=== PATIENT | female | born 1940 | race Caucasian/White ===

== ENCOUNTER 2017-07-23 21:48 | Inpatient (IN) | payer MEDICARE, MEDICAID ==
[~2017-07-23] VITALS: Ht 170.2 cm; Wt 84.6 kg
--- NOTE | 2017-07-23 21:58 | NUR ---
JEN MCKEON FROM [facility]; PER EMS, GENERALIZED WEAKNESS. PER EMS "FACILITY CALLED BECAUSE PT WAS UNABLE TO TRANFER TO W/C TO RESTROOM PT USUALLY WOULD. EVERYTHING ELSE IS PT BASELINE." PT AOX2 RR EVEN AND UNLABORED. NO SOB NOTED. NAD NOTED. NO NVD AT THIS TIME. PT GOWNED AND PLACED ON MONITOR WAITING FOR MD GASTELUM.
--- NOTE | 2017-07-23 22:12 | NUR ---
IV STARTED ON RIGHT AC 18G. GOOD BLOOD RETURN LABS DRAWN SENT TO LAB
[2017-07-23 22:24] LABS: BASOPHILS % (AUTO) 0.1 % (0.0-2.0); EOSINOPHILS # (AUTO) 0.2 /CMM (0.0-0.7); HEMATOCRIT 37 % (33-45); LYMPHOCYTES # (AUTO) 1.1 /CMM (0.8-4.8); LYMPHOCYTES % (AUTO) 11.7 % (20.0-44.0); MEAN CORPUSCULAR HEMOGLOBIN 27 PG (26.0-33.0); MEAN CORPUSCULAR HGB CONC 33 g/dl (31.0-36.0); MEAN CORPUSCULAR VOLUME 84 fL (82-100); MONOCYTES # (AUTO) 0.8 /CMM (0.1-1.30); MONOCYTES % (AUTO) 9.1 % (2.0-12.0); NEUTROPHILS % (AUTO) 77.1 % (43.0-81.0); PLATELET COUNT (AUTO) 331 /CMM (150-450); RDW COEFFICIENT OF VARIATION 16.6 (11.5-15.0); WHITE BLOOD COUNT (AUTO) 9.1 K/uL (4.3-11.0)
--- NOTE | 2017-07-23 22:27 | NUR ---
URINE COLLECTED. CALLED LAB FOR PANAMA HAT SMEARER
[2017-07-23 22:34] LABS: CALCIUM, SERUM 9.2 mg/dL (8.5-10.1); CARBON DIOXIDE 25 mmol/L (21-32); CHLORIDE 106 mmol/L (98-107); CREATININE 1.3 mg/dL (0.6-1.3); GLUCOSE 124 mg/dL (74-106); POTASSIUM 4.4 mmol/L (3.5-5.1); SODIUM SERUM 141 mmol/L (136-145); UREA NITROGEN, BLOOD 25 mg/dL (7-18)
[2017-07-23 22:39] LABS: ALANINE AMINOTRANSFERASE 29 U/L (12-78); ALBUMIN 3.5 g/dL (3.4-5.0); ALKALINE PHOSPHATASE 86 U/L (46-116); ASPARTATE AMINOTRANSFERASE 15 U/L (15-37); BILIRUBIN,TOTAL 0.2 mg/dL (0.2-1.0); TOTAL PROTEIN, SERUM 8.2 g/dL (6.4-8.2)
[2017-07-23 22:42] LABS: TROPONIN I < 0.017 ng/mL (0.00-0.056)
--- NOTE | 2017-07-23 22:50 | NUR ---
PT TO RADIOLOGY FOR CT HEAD
--- NOTE | 2017-07-23 23:00 | NUR ---
PT RETURNED FROM CT.
--- NOTE | 2017-07-23 23:32 | NUR ---
RECOLLECTED URINE. SENT TO LAB.
[2017-07-23 23:38] LABS: APPEARANCE,URINE SL CLOUDY (CLEAR); BILIRUBIN,URINE NEGATIVE (NEGATIVE); BLOOD, URINE 1+ Ery/uL (NEGATIVE); COLOR,URINE YELLOW (YELLOW); KETONES,URINE NEGATIVE (NEGATIVE); LEUKOCYTE ESTERASE ,URINE NEGATIVE (NEGATIVE); NITRITE, URINE NEGATIVE (NEGATIVE); PROTEIN,URINE NEGATIVE (NEGATIVE); UGLUCOSE NEGATIVE (NEGATIVE); UROBILINOGEN,URINE 0.2 EU/dL (0.2)
[2017-07-23 23:57] LABS: BACTERIA,URINE None seen /HPF (None Seen); SQUAMOUS EPITHELIAL CELL,UR Few /HPF (None Seen); WBC,URINE 0-2 /HPF (0-3)
--- NOTE | 2017-07-24 00:26 | NUR ---
PT ASSIGNED TO [facility] BED 321-1
--- NOTE | 2017-07-24 00:28 | NUR ---
PT ASSIGNED TO 309-1
--- NOTE | 2017-07-24 00:31 | NUR ---
REPORT GIVEN TO JASE LUCERO. FOR DIEGO FOR TELE BED 309-1
[2017-07-24] MEDS ORDERED: DIPH50CA4 PO (00:39)
[2017-07-24] MEDS ORDERED: SPIR50TA3 PO (00:39)
[2017-07-24] MEDS ORDERED: DIPH25CA83 PO (00:39)
[2017-07-24] MEDS ORDERED: LISI10TA5 PO (00:39)
[2017-07-24] MEDS ORDERED: WARF3TAB6 PO (00:39)
[2017-07-24] MEDS ORDERED: AMMO226L TP (00:39)
[2017-07-24] MEDS ORDERED: LEVO75TA7 PO (00:39)
[2017-07-24] MEDS ORDERED: DOCU250C75 PO (00:39)
[2017-07-24] MEDS ORDERED: ACET-868 PO (00:39)
[2017-07-24] MEDS ORDERED: [UNRECOGNIZED DRUG - CODE] SQ (00:39)
[2017-07-24] MEDS ORDERED: BUPR-51 PO (00:39)
--- NOTE | 2017-07-24 00:52 | NUR ---
PT TRANSFERRED PER ACLS PROTOCOL.
[2017-07-24 01:00] VITALS: BP 116/69
[2017-07-24] MEDS ORDERED: ACETAMINOPHEN 325 MG TABLET PO PRN (01:00)
[2017-07-24] MEDS ORDERED: MORPHINE SULFATE INJ 2 MG/ML DISP.SYRIN IV PRN (01:00)
[2017-07-24] MEDS ORDERED: ONDANSETRON HCL/PF 4 MG/2 ML VIAL IVP PRN (01:00)
--- NOTE | 2017-07-24 01:00 | NUR ---
TELE TELEVISION PARTS TESTER INITIAL NOTES ADMIT PT FROM ER VIA [facility] ACCOMPANIED BY ER NURSE AND TECH. DX OF GENERAL WEAKNESS. PT IS AWAKE AND ALERT , ORIENTED WHERE SHE AT AND HOW TO USED THE CALL LIGHT SYSTEM. SKIN ASSESSMENT DONE . DENIES ANY PAIN OR ANY DISCOMFORT. NOT IN ANY ACUTE DISTRESS NOTED. TELE SR PER MONITOR. KEPT HER WARM AND COMFORTABLE AT ALL TIMES. BED ALARM SET FOR SAFETY. PLACE CALL LIGHT AT REACH. CONTINUE MONITORING. BED ALARM SET FOR SAFETY. SNACKS ALSO SERVED. PER PT REQUESTED.
[2017-07-24 01:52] LABS: INR 1.86 (0.87-1.13); PROTHROMBIN TIME 20.7 SECS (9.5-12.7)
[2017-07-24 06:49] LABS: BASOPHILS % (AUTO) 0.5 % (0.0-2.0); EOSINOPHILS # (AUTO) 0.1 /CMM (0.0-0.7); EOSINOPHILS % (AUTO) 1.9 % (0.0-6.0); HEMATOCRIT 34 % (33-45); HEMOGLOBIN 11.1 g/dL (11.5-14.8); LYMPHOCYTES # (AUTO) 1.2 /CMM (0.8-4.8); LYMPHOCYTES % (AUTO) 15.8 % (20.0-44.0); MEAN CORPUSCULAR HEMOGLOBIN 27 PG (26.0-33.0); MEAN CORPUSCULAR HGB CONC 32 g/dl (31.0-36.0); MEAN CORPUSCULAR VOLUME 84 fL (82-100); MONOCYTES # (AUTO) 0.6 /CMM (0.1-1.30); MONOCYTES % (AUTO) 8.4 % (2.0-12.0); NEUTROPHILS # (AUTO) 5.3 /CMM (1.8-8.9); NEUTROPHILS % (AUTO) 73.4 % (43.0-81.0); PLATELET COUNT (AUTO) 319 /CMM (150-450); RDW COEFFICIENT OF VARIATION 15.7 (11.5-15.0); RED BLOOD CELL COUNT(AUTO) 4.12 MIL/uL (4.0-5.2); WHITE BLOOD COUNT (AUTO) 7.3 K/uL (4.3-11.0)
[2017-07-24 06:56] LABS: ALANINE AMINOTRANSFERASE 26 U/L (12-78); ALBUMIN 3.2 g/dL (3.4-5.0); ALKALINE PHOSPHATASE 80 U/L (46-116); ASPARTATE AMINOTRANSFERASE 13 U/L (15-37); BILIRUBIN,TOTAL 0.2 mg/dL (0.2-1.0); CALCIUM, SERUM 8.9 mg/dL (8.5-10.1); CARBON DIOXIDE 25 mmol/L (21-32); CHLORIDE 108 mmol/L (98-107); CREATININE 1.2 mg/dL (0.6-1.3); GLUCOSE 109 mg/dL (74-106); MAGNESIUM 1.7 mg/dL (1.8-2.4); PHOSPHORUS 2.9 mg/dL (2.5-4.9); POTASSIUM 3.8 mmol/L (3.5-5.1); SODIUM SERUM 142 mmol/L (136-145); TOTAL PROTEIN, SERUM 7.6 g/dL (6.4-8.2); UREA NITROGEN, BLOOD 22 mg/dL (7-18)
--- NOTE | 2017-07-24 07:01 | NUR ---
TELE SECTION HOUSEKEEPER CLOSING NOTES PT AWAKE AND SEEMS ANXIOUS, RE-ORIENTED WHERE SHE AT. ALSO EDUCATE PT REGARDING FALL PRECAUTION AND PT UNDERSTOOD WELL . SHE STATED THAT NEEDS TO CALL HER DAUGHTER TO LET HER KNOW THAT SHE'S HERE IN THE HOSPITAL. DENIES ANY PAIN OR ANY DISCOMFORT. NO SOB NOTED. ABLE TO GET UP BUT NEEDS ASSISTANCE FOR SAFETY. SLEPT ON AND OFF BUT STABLE SINCE ADMISSION. TELE SR PER MONITOR. MORNING CARE DONE WITH THE HELPED OF ARGELIA CHIANG. ALL DUE MEDS GIVEN AND ALL NEEDS MET . KEPT HER WARM AND COMFORTABLE AT ALL TIMES. WILL ENDORSE TO AM NURSE FOR CONTINUITY OF CARE.BED ALARM SET FOR SAFETY.
[2017-07-24 07:03] LABS: CHOLESTEROL 155 mg/dL (<200); HDL CHOLESTEROL 26 mg/dL (40-60); LDL 74 mg/dL (0-99); THYROID STIMULATING HORMONE 1.404 uIU/mL (0.358-3.74); TRIGLYCERIDES 410 mg/dL (30-150)
[2017-07-24 07:19] VITALS: BP 128/80
[2017-07-24 08:00] VITALS: BP 128/80
--- NOTE | 2017-07-24 08:00 | NUR ---
SPORTS MARKETING COORDINATOR NOTES PATIENT AWAKE IN BED,TALKATIVE. NO SOB, NO DISCOMFORT NOTED. PERIPHERAL IV ACCESS ON LFA INTACT PATENT. NO ANXIOUSNESS NOTED AT THIS TIME. BED IN LOW LOCKED POSITION. CALL LIGHT WITHIN REACH. MONITORING CLOSELY.
[2017-07-24 08:59] LABS: INR 1.94 (0.87-1.13); PROTHROMBIN TIME 21.7 SECS (9.5-12.7)
[2017-07-24] MEDS: LEVOTHYROXINE SODIUM 75 MCG TABLET PO SCH (11:02)
[2017-07-24] MEDS: BUPROPION XL 150 MG TAB.ER.24 PO SCH (11:02)
[2017-07-24] MEDS: PANTOPRAZOLE 40 MG TABLET.DR PO SCH (11:02)
[2017-07-24] MEDS: LISINOPRIL (10MG) 10 MG TABLET PO SCH (11:03)
[2017-07-24] MEDS: Magnesium 1GM/D5W 100ML PREMIX 100 ML IV SCH ×2 (11:28→12:38)
--- NOTE | 2017-07-24 11:58 | NUR ---
MS RN NOTES PATIENT SEEN BY MD WITH NEW ORDERS TO BE EVALUATED BY PT & REPLACE MAGNESIUM. ACKNOWLEDGED & CARRIED OUT. MONITORING CLOSELY.
[2017-07-24 16:00] VITALS: BP 113/67
[2017-07-24] MEDS: WARFARIN SODIUM 1 MG TABLET PO SCH (17:34)
--- NOTE | 2017-07-24 18:55 | NUR ---
MS RN NOTES PATIENT RESTING IN BED. NO DISTRESS. NO C/O PAIN NO SOB NOTED. PARTICIPATED WITH PT EVAL TOLERATED WELL. ON BED REST FOR SAFETY DUE TO WEAKNESS. HAS EPISODES OF CONFUSION ON & OFF. PERIPHERAL IV LINE ON LAC INTACT PATENT. BED IN LOW LOCKED POSITION. ALL NEEDS MET. WILL ENDORSE TO MOLD PRESS OPERATOR.
--- NOTE | 2017-07-24 19:53 | NUR ---
MS RN NOTE RECEIVED PATIENT FROM DAY SHIFT, PATIENT IS ALERT AND ORIENTEDX2, CONFUSED AT TIMES, NO S/S OF RESPIRATORY DISTRESS AND NO FACIAL GRIMACE PRESENT. IV ON LEFT FA IS PATENT AND INTACT, COVERED WITH SLEEVE. SRX2, BED IN LOW POSITION, CALL LIGHT WITHIN REACH, WILL CONTINUE TO MONITOR.
[2017-07-24 19:59] VITALS: BP 129/66
[2017-07-25 06:47] LABS: CALCIUM, SERUM 8.8 mg/dL (8.5-10.1); CARBON DIOXIDE 27 mmol/L (21-32); CHLORIDE 105 mmol/L (98-107); CREATININE 1.1 mg/dL (0.6-1.3); GLUCOSE 97 mg/dL (74-106); SODIUM SERUM 139 mmol/L (136-145); UREA NITROGEN, BLOOD 18 mg/dL (7-18)
--- NOTE | 2017-07-25 06:54 | NUR ---
MS RN NOTE PATIENT IS RESTING IN BED, NO S/S OF RESPIRATORY DISTRESS OR PAIN AT THIS TIME. IV ON LEFT LEFT FA IS PATENT AND INTACT, SL ONLY. WILL ENDORSE TO DAY SHIFT NURSE FOR DIEGO.
--- NOTE | 2017-07-25 07:30 | NUR ---
RN OPEN NOTES RECEIVED REPORT FROM CLOTH REELER NURSE. PATIENT IS IN BED WITH HER EYES CLOSED. EASILY AROUSED TO LIGHT TOUCH. BED IN LOW POSITION, LOCKED AND TWO SIDE RAILS ARE UP. WILL CONTINUE TO ASSESS AND MONITOR PATIENT.
--- NOTE | 2017-07-25 07:35 | NUR ---
RN OPEN NOTES RECEIVED REPORT FROM SUPERVISOR COMMISSARY PRODUCTION NURSE. PATIENT IS IN BED WITH HER EYES CLOSED. EASILY AROUSED TO LIGHT TOUCH. BED IN LOW POSITION, LOCKED AND TWO SIDE RAILS ARE UP. WILL CONTINUE TO ASSESS AND MONITOR PATIENT.
[2017-07-25 08:00] VITALS: BP 116/61
[2017-07-25] MEDS: PANTOPRAZOLE 40 MG TABLET.DR PO SCH (08:30)
[2017-07-25] MEDS: LEVOTHYROXINE SODIUM 75 MCG TABLET PO SCH (08:30)
[2017-07-25] MEDS: BUPROPION XL 150 MG TAB.ER.24 PO SCH (08:30)
[2017-07-25] MEDS: LISINOPRIL (10MG) 10 MG TABLET PO SCH (08:30)
--- NOTE | 2017-07-25 08:50 | NUR ---
DR WALLACE AT BEDSIDE
[2017-07-25] MEDS: methylPREDNISolone SOD SUCC 125 MG/2ML VIAL IV SCH ×3 (11:12→16:28)
--- NOTE | 2017-07-25 13:45 | NUR ---
BUSTER DAUGHTER WOULD LIKE [facility] TO HAVE A COPY OF THE PATIENT PREVIOUS MRI RESULT. THE DAUGHTER REQUESTED THE MRI TO BE FAXED TO [facility]
--- NOTE | 2017-07-25 14:18 | NUR ---
SPOKE WITH BUSTER VUONG. PATIENT HAS ADVANCE DIRECTIVE FOR DNR/DNI AND SHE WILL PROVIDE A COPY VALDEZ FROM THE FACILITY. BUSTER RICARDO NUMBER IS [phone]
[2017-07-25 15:14] LABS: INR 1.57 (0.87-1.13); PROTHROMBIN TIME 17.3 SECS (9.5-12.7)
[2017-07-25 16:00] VITALS: BP 144/90
[2017-07-25] MEDS: WARFARIN SODIUM 1 MG TABLET PO SCH (16:31)
--- NOTE | 2017-07-25 18:31 | NUR ---
RN CLOSING NOTES PATIENT IN BED, ALERT AND ORIENTED TO SELF ONLY WITH PERIOD OF CONFUSION. ON ROOM AIR, BREATHING EVEN AND UNLABORED. IV SITE IS INTACT AND PATENT ON THE LEFT FOREARM 22G, HL ALL NURSING CARE PROVIDED FOR COMFORT AND SAFETY. DUE MEDS GIVEN. BED IN LOWER AND LOCKED POSITION, TWO SIDE RAILS ARE UP AND CALL LIGHT WITHIN REACH. WILL ENDORSE TO NIGHT RN FOR DIEGO.
--- NOTE | 2017-07-25 19:10 | NUR ---
RN OPEN NOTES RECEIVED PATIENT AWAKE IN BED. A/O X1. NO SIGNS OF DISTRESS OR DISCOMFORT. BREATHING EVEN AND UNLABORED. IV ACCESS IN LFA PATENT AND INTACT NO SIGNS OF REDNESS OR INFILTRATION. BED IN LOW LOCKED POSITION WITH SIDE RAILS X3. CALL LIGHT WITHIN REACH. WILL CONTINUE TO MONITOR.
[2017-07-25 20:00] VITALS: BP 128/88
--- NOTE | 2017-07-26 06:39 | NUR ---
RN CLOSING NOTES PATIENT AWAKE IN BED. A/O X1. NO SIGNS OF DISTRESS OR DISCOMFORT. BREATHING EVEN AND UNLABORED. IV ACCESS IN LFA PATENT AND INTACT NO SIGNS OF REDNESS OR INFILTRATION. ALL NEEDS MET. NO SIGNIFICANT CHANGES THROUGH THE NIGHT. PATIENT KEPT CLEAN DRY AND COMFORTABLE. BED IN LOW LOCKED POSITION WITH SIDE RAILS X3. CALL LIGHT WITHIN REACH. WILL ENDORSE TO AM SHIFT FOR DIEGO.
[2017-07-26 07:29] LABS: CALCIUM, SERUM 8.8 mg/dL (8.5-10.1); CARBON DIOXIDE 23 mmol/L (21-32); CHLORIDE 106 mmol/L (98-107); CREATININE 1.2 mg/dL (0.6-1.3); GLUCOSE 136 mg/dL (74-106); POTASSIUM 4.3 mmol/L (3.5-5.1); SODIUM SERUM 141 mmol/L (136-145); UREA NITROGEN, BLOOD 27 mg/dL (7-18)
[2017-07-26 08:00] VITALS: BP 129/70
[2017-07-26 09:19] LABS: INR 1.49 (0.87-1.13); PROTHROMBIN TIME 16.3 SECS (9.5-12.7)
[2017-07-26] MEDS: methylPREDNISolone SOD SUCC 125 MG/2ML VIAL IV SCH ×3 (10:30→18:02)
[2017-07-26] MEDS: LEVOTHYROXINE SODIUM 75 MCG TABLET PO SCH (10:30)
[2017-07-26] MEDS: PANTOPRAZOLE 40 MG TABLET.DR PO SCH (10:31)
[2017-07-26] MEDS: LISINOPRIL (10MG) 10 MG TABLET PO SCH (10:31)
[2017-07-26] MEDS: BUPROPION XL 150 MG TAB.ER.24 PO SCH (10:31)
--- NOTE | 2017-07-26 11:00 | NUR ---
DR. WALLACE IN WITH PLANS FOR DC TODAY.
[2017-07-26] MEDS ORDERED: PRED20TA PO (11:03)
--- NOTE | 2017-07-26 13:00 | NUR ---
PLEATER RECEIVED CALL FROM LENO SEWER. THAT PT. COULD STAY.DTR. INFORMED.
[2017-07-26 16:00] VITALS: BP 136/73
--- NOTE | 2017-07-26 18:00 | NUR ---
NO CHANGE IN STATUS.
[2017-07-26] MEDS: WARFARIN SODIUM 1 MG TABLET PO SCH (18:04)
--- NOTE | 2017-07-26 19:58 | NUR ---
RN NOTES RECEIVED PATIENT IN BED, ALERT AND ORIENTED X2, CALM, WITH EPISODE OF FORGETFULNESS, NO SOB, NO RESPIRATORY DISTRESS, ON 2LPM VIA NC, SPO2 95%, LUNG SOUNDS ARE CLEAR, ACTIVE BOWEL SOUNDS, DENIES ANY PAIN AT THIS TIME, REPOSITIONED FOR COMFORT, CALL LIGHT WITHIN REACH.
[2017-07-26 20:00] VITALS: BP 140/68
--- NOTE | 2017-07-26 20:40 | NUR ---
MS/POLYMER MATERIALS CONSULTANT; RECEIVED PT FROM THE RN FOR CONTINUITY OF CARE. PT AT THIS TIME IN BED AWAKE ON THE PHONE TALKING. BREATHING NON LABORED.HL ON LFA INTACT. BED ON LOWER POSITION AND LOCKED FOR SAFETY. SIDE RAILS ARE UP FOR SAFETY. CONTINUE TO MONITOR. CALL LIGHT WITHIN REACH.
--- NOTE | 2017-07-27 06:56 | NUR ---
MS/DOUGH CUTTING MACHINE OPERATOR; SLEPT FAIRLY. BREATHING NON LABORED. INCONTINENT OF URINE . AM CARE DONE BY THE HAND UPPER AND BOTTOM LACER. TURNED AND REPOSITIONED. WILL ENDORSE TO THE DAY SHIFT NURSE.
--- NOTE | 2017-07-27 07:15 | NUR ---
RN OPENING NOTES RECEIVED PATIENT IN BED AWAKE. A/O X3, TO NAME, PLACE, EVENT. NO ACUTE DISTRESS, NO SOB NOTED. DENIES PAIN OR DISCOMFORT AT THIS TIME. IV SITE SL, INTACT AND PATENT. BED IN LOCKED, LOWEST POSITION, SIDERAILS UP X2, HOB ELEVATED. CALL LIGHT WITHIN REACH. WILL CONTINUE TO MONITOR ACCORDINGLY. Addendum: 07/27/17 at 0755 by LESLEY BHANDARI PATIENT HAS EPISODES OF CONFUSION AND FORGETFULNESS.
[2017-07-27 08:00] VITALS: BP 129/82
[2017-07-27 08:24] LABS: CALCIUM, SERUM 8.7 mg/dL (8.5-10.1); CARBON DIOXIDE 22 mmol/L (21-32); CHLORIDE 106 mmol/L (98-107); CREATININE 1.1 mg/dL (0.6-1.3); GLUCOSE 190 mg/dL (74-106); POTASSIUM 4.2 mmol/L (3.5-5.1); SODIUM SERUM 141 mmol/L (136-145); UREA NITROGEN, BLOOD 36 mg/dL (7-18)
[2017-07-27] MEDS: LEVOTHYROXINE SODIUM 75 MCG TABLET PO SCH (08:27)
[2017-07-27] MEDS: PANTOPRAZOLE 40 MG TABLET.DR PO SCH (08:28)
[2017-07-27] MEDS: BUPROPION XL 150 MG TAB.ER.24 PO SCH (08:28)
[2017-07-27] MEDS: methylPREDNISolone SOD SUCC 125 MG/2ML VIAL IV SCH ×3 (08:28→18:00)
[2017-07-27] MEDS: LISINOPRIL (10MG) 10 MG TABLET PO SCH (08:29)
[2017-07-27 16:00] VITALS: BP 139/74
[2017-07-27 18:15] LABS: INR 1.71 (0.87-1.13); PROTHROMBIN TIME 18.9 SECS (9.5-12.7)
[2017-07-27] MEDS: WARFARIN SODIUM 1 MG TABLET PO SCH (18:34)
--- NOTE | 2017-07-27 19:30 | NUR ---
MS RN OPENING NOTES: PATIENT IN BED, AOX2, ON ROOM AIR, BREATHING EVEN AND UNLABORED. APPEARS CALM AND IN NO DISTRESS. PIV OVER LFA G22 INTACT AND PATENT TO FLUSH. PROVIDED FOR COMFORT AND SAFETY. BED IN LOWEST AND LOCKED POSITION, SIDERAILS UP X3. WILL CONT TO MONITOR.
--- NOTE | 2017-07-27 19:30 | NUR ---
RN CLOSING NOTES NO SIGNIFICANT CHANGE IN PATIENT'S CONDITION. NO ACUTE DISTRESS, NO SOB NOTED, DENIES PAIN AT THE MOMENT. ALL NEEDS ATTENDED AND PROVIDED. KEPT PATIENT SAFE AND COMFORTABLE. BED LOCKED, LOW POSITION, SIDERAILS UPX2. CALL LIGHT IN REACH. ENDORSED TO JANITOR CUSTODIAN RN FOR DIEGO.
[2017-07-27 20:00] VITALS: BP 143/95
--- NOTE | 2017-07-28 | NUR ---
RN NOTES: PATIENT ACCIDENTALLY PULLED OUT HER IV. REINSERTED NEW IV OVER LFA G22.
--- NOTE | 2017-07-28 06:32 | NUR ---
MS RN CLOSING NOTES: PATIENT IN BED, AOX2, ON ROOM AIR, BREATHING EVEN AND UNLABORED. APPEARS CALM AND IN NO DISTRESS. DENIES PAIN AT THIS TIME. PIV OVER LEFT FOREARM G22 INTACT AND PATENT TO FLUSH. NO ACUTE CHANGE IN CONDITION NOTED THROUGH SHIFT. PROVIDED FOR COMFORT AND SAFETY. MORNING CARE RENDERED. BED IN LOWEST AND LOCKED POSITION, SIDERAILS UPX3. BED ALARMS ON. WILL ENDORSE TO AM RN FOR DIEGO.
--- NOTE | 2017-07-28 07:17 | NUR ---
RN NOTES RECEIVED PATIENT IN BED AWAKE, MORE ALERT AND ORIENTED IN THE MORNING THAN AT NIGHT. A/O X3, TO NAME, PLACE, EVENT. NO ACUTE DISTRESS, NO SOB NOTED. DENIES PAIN OR DISCOMFORT AT THIS TIME. IV SITE SL, INTACT AND PATENT. BED IN LOCKED, LOWEST POSITION, SIDERAILS UP X2, HOB ELEVATED. CALL LIGHT WITHIN REACH. WILL CONTINUE TO MONITOR ACCORDINGLY.
[2017-07-28 07:30] LABS: CALCIUM, SERUM 8.9 mg/dL (8.5-10.1); CARBON DIOXIDE 24 mmol/L (21-32); CHLORIDE 106 mmol/L (98-107); CREATININE 1.1 mg/dL (0.6-1.3); GLUCOSE 135 mg/dL (74-106); POTASSIUM 4.4 mmol/L (3.5-5.1); SODIUM SERUM 142 mmol/L (136-145); UREA NITROGEN, BLOOD 36 mg/dL (7-18)
[2017-07-28 08:00] VITALS: BP 151/79
[2017-07-28] MEDS: PANTOPRAZOLE 40 MG TABLET.DR PO SCH (08:14)
[2017-07-28] MEDS: BUPROPION XL 150 MG TAB.ER.24 PO SCH (08:14)
[2017-07-28] MEDS: LEVOTHYROXINE SODIUM 75 MCG TABLET PO SCH (08:14)
[2017-07-28] MEDS: LISINOPRIL (10MG) 10 MG TABLET PO SCH (08:15)
[2017-07-28] MEDS: methylPREDNISolone SOD SUCC 125 MG/2ML VIAL IV SCH ×2 (08:17→13:34)
[2017-07-28 12:46] LABS: INR 1.42 (0.87-1.13); PROTHROMBIN TIME 15.5 SECS (9.5-12.7)
[2017-07-28 15:30] VITALS: BP 125/77
--- NOTE | 2017-07-28 15:54 | NUR ---
RN NOTES DISCHARGE PATIENT IN STABLE CONDITION ACCOMPANIED BY 2 OTOLARYNGOLOGIST. DISCHARGE PAPERWORK GIVEN TO OTOLARYNGOLOGIST. CALLED KATHRYN FROM [facility] FOR REPORT, DISCHARGE INSTRUCTIONS GIVEN.
== END 2017-07-28 16:00 | DRG 58 ==
LOC: ER 21:52 → TELE 07-24 00:32 → MED 07-24 08:49
PROVIDERS: ADMIT Internal Medicine; ATTEND Internal Medicine
DX: G35 Multiple sclerosis (principal); G92 Toxic encephalopathy; N17.0 Acute kidney failure with tubular necrosis; E44.0 Moderate protein-calorie malnutrition; W18.30XA Fall on same level, unspecified, initial encounter; E66.9 Obesity, unspecified; F03.90 Unspecified dementia, unspecified severity, without behavioral disturbance, psychotic disturbance, mood disturbance, and anxiety; F32.9 Major depressive disorder, single episode, unspecified; Z79.01 Long term (current) use of anticoagulants; Z86.711 Personal history of pulmonary embolism; Z86.718 Personal history of other venous thrombosis and embolism; E88.09 Other disorders of plasma-protein metabolism, not elsewhere classified; Z68.29 Body mass index [BMI] 29.0-29.9, adult; F41.9 Anxiety disorder, unspecified; Y93.9 Activity, unspecified; Y92.89 Other specified places as the place of occurrence of the external cause; Y99.9 Unspecified external cause status; E89.0 Postprocedural hypothyroidism
CPT/HCPCS: 36415; 70450-TC; 71010-TC; 80048-TC; 80053-TC; 80061-TC; 80076-TC; 81000-TC; 82962-TC; 83735-TC; 84100-TC; 84443-TC; 84484-TC; 85025-TC; 85610-TC; 87081-TC; 87086-TC; 97530-TC; J2930; J3475